=== PATIENT | female | born 1975 | race Caucasian/White ===

== ENCOUNTER → 2022-10-05 14:37 | Outpatient (CLI) | payer BC, SELFPAY ==
--- NOTE | 2022-10-05 14:43 | CA_ITS ---
APPROVED REPORT EXAM: Comprehensive 2D, Doppler, and color-flow Echocardiogram Machine Bookkeeper: Kaur Burnette RVT Ht: 5 ft 9 in Wt: 276lbs BSA: 2.37 BP: 120/76 mmHg Indications: PALPS,SMOKER 2D Dimensions LVOT 1.97 cm (M/F) 1.5-2.5 LA Volume 15.60 mL LA Volume Index 6.58 mL/m2 (M/F) 16-34 M-Mode Dimensions RVDd 2.01 cm (0.9-2.6) LA Diam 3.67 cm (1.9-4.0) LVDd 4.53 cm (3.5-5.7) Ao Diam 2.91 cm (2.0-3.7) LVDs 2.95 cm (3.5-5.7) IVSd 1.17 cm (0.6-1.1) PWd 0.67 cm (0.6-1.1) EF (Teich) 64.20% FS 34.90% EDV (Teich) 93.90 mL TAPSE 3.05 (<1.7) ESV (Teich) 33.60 mL LV Diastology E Decel Time 150.00 (160-240 msec) E/A Ratio 0.7 MED E' 8.20 (< 7 cm/sec) E'/MED E' Ratio 6.32 (>14) LAT E' 5.20 (<10 cm/sec) E/LAT E' Ratio 9.96 (>14) Aortic Valve AO Peak GR. 3.40 mmHg Mitral Valve MV E Max Ross. 52.00 (40-130 cm/s) MV A Velocity 70.00 (40-130 cm/s) E/A Ratio 0.74 MV Decel. Time 150.00 (160-240 ms) MV PHT 44.00 ms Pulmonary Valve PV Peak Velocity 55.00 (50-150 cm/s) Left Ventricle Left atrium is quite atrium mildly enlarged, left ventricle is normal size, estimated ejection fraction 55% with no regional wall motion abnormality, grade 1 diastolic dysfunction seen without tissue Doppler evidence of raise left atrial pressure. Right Ventricle Right atrium and right ventricular normal size and contractility. Aortic Valve Aortic valve is minimally thickened and fibrosed there is no aortic stenosis or aortic insufficiency. Mitral Valve Mitral valve is grossly normal, there is trace mitral regurgitation. Tricuspid Valve Tricuspid grossly normal, there is trace tricuspid regurgitation, tricuspid regurgitation jet velocity is inadequate for calculation of the right ventricular systolic pressure. Pulmonic Valve Pulmonic valve is poorly visualized. Great Vessels Aortic root is normal size. Inferior vena cava is normal size with normal inspiratory collapse. Pericardium No significant pericardial effusion noted. Conclusion 1. Normal left ventricular size, estimated ejection fraction 55% with no regional wall motion abnormality, grade 1 diastolic dysfunction seen without tissue Doppler evidence of raise left atrial pressure. 2. Trace mitral and tricuspid regurgitation. 3. No significant pericardial effusion noted. 4. Inferior vena cava is normal size with normal inspiratory collapse. Electronically signed by : Richie Knight MD 10/06/2022 12:59:34
== END ==
PROVIDERS: PCP Family Medicine; Visit Provider Physician Assistant
DX: R00.2 Palpitations (principal)
CPT/HCPCS: 93306